=== PATIENT | male | born 2000 | race Caucasian/White ===

== ENCOUNTER 2025-01-13 10:52 | Emergency (ER) | payer SELFPAY ==
[~2025-01-13] VITALS: Ht 180.3 cm; Wt 81.6 kg
[2025-01-13 11:08] VITALS: PULSE 92; RESP 16; TEMP 98.6
[2025-01-13] MEDS ORDERED: SODIUM CHLORIDE 0.9% 1000ML 1,000 ML IV STA (11:47)
[2025-01-13 12:04] LABS: BASOPHILS % 0.8 % (0.0-1.0); EOSINOPHILS % 0.5 % (0.0-6.0); LYMPHOCYTES % 21.2 % (18.0-39.1); MONOCYTES % 7.6 % (4.4-11.3); NEUTROPHILS % 69.8 % (38.7-80.0); RED CELL DISTRIBUTION WIDTH 12.0 % (11.7-14.4)
[2025-01-13 12:09] LABS: INR 1.08
[2025-01-13 12:18] LABS: EST GLOMERULAR FILTRATION RATE 123.0 ML/MIN (>=60)
[2025-01-13 13:16] VITALS: BP 118/76; PULSE 76; RESP 17; O2SAT 100
== END 2025-01-13 13:18 | disposition home or self-care (01) ==
LOC: ER 11:48
DX: K92.1 Melena (principal); F41.9 Anxiety disorder, unspecified; F32.A Depression, unspecified
CPT/HCPCS: 36415; 80053; 85025; 85610; 85730; 99283